=== PATIENT | female | born 1940 | race Caucasian/White ===

== ENCOUNTER → 2019-05-13 | Outpatient (CLI) | payer MEDICARE ==
--- NOTE | 2019-05-13 15:24 | US ---
EXAMINATION TYPE: US carotid duplex BILAT DATE OF EXAM: 05/13/2019 COMPARISON: NONE CLINICAL HISTORY: I65.29 Occlusion Stenosis.Bruit EXAM MEASUREMENTS: RIGHT: Peak Systolic Velocity (PSV) cm/sec ----- Right CCA: 67.1 ----- Right ICA: 94.7 ----- Right ECA: 136.3 ICA/CCA ratio: 1.4 RIGHT: End Diastole cm/sec ----- Right CCA: 14.8 ----- Right ICA: 25.0 ----- Right ECA: 22.0 LEFT: Peak Systolic Velocity (PSV) cm/sec ----- Left CCA: 95.8 ----- Left ICA: 203.4 ----- Left ECA: 114.1 ICA/CCA ratio: 2.1 LEFT: End Diastole cm/sec ----- Left CCA: 23.1 ----- Left ICA: 41.7 ----- Left ECA: 0 VERTEBRALS (direction of flow): Right Vertebral: Antegrade Left Vertebral: Antegrade Rhythm: Normal Grayscale, color Doppler, spectral Doppler imaging performed of the carotid arteries. Waveform analys is does not show significant stenosis of the internal carotid artery on the right. Peak systolic [place] within the proximal internal carotid artery is elevated. Some atheromatous change present in the carotid bulbs. IMPRESSION: Hemodynamic significant stenosis of the proximal internal carotid left corresponding to approximately 50-69% diameter reduction by Doppler criteria, an indirect measurement of carotid steno sis, consider carotid CTA.
== END | disposition home or self-care (01) ==
LOC: RADUSWWP 14:42
PROVIDERS: ATTEND Family Medicine
DX: I65.22 Occlusion and stenosis of left carotid artery (principal)
CPT/HCPCS: 93880

== ENCOUNTER → 2019-07-13 | Outpatient (CLI) | payer MEDICARE ==
--- NOTE | 2019-07-13 14:08 | CT ---
EXAMINATION TYPE: CT angio neck DATE OF EXAM: 07/13/2019 COMPARISON: Ultrasound 05/13/2019 HISTORY: 78-year-old female Carotid stenosis TECHNIQUE: Contiguous axial scanning of the neck performed with IV Contrast, patient injected with 65 mL of Isovue 370. Coronal/sagittal MIP reconstructions performed. 3-D reconstructions generated on a dedicated workstation. CT DLP: 292 mGycm Automated exposure control for dose reduction was used. FINDINGS: Mild atherosclerotic arch calcifications. Conventional arch vessel branching anatomy. Visualized uppe r lungs appear clear. There appears to be occlusion of the left vertebral artery. Some faint reconstitution is present in t he upper neck and V4 segment. Right vertebral artery remains patent. The brachiocephalic artery and right common carotid artery are patent. Mild atelectatic changes at the right carotid bifurcation with mild, less than 30% stenosis at the pr oximal right ICA. Moderate atherosclerotic calcifications within the right carotid siphon. The left common carotid artery is patent. Focal atherosclerotic plaque and calcification involving the proximal left carotid bulb resulting in a focal severe 70% stenosis. The bifurcation is located 1.5 cm below the angle of the mandible. Mild apical scarring changes at the left carotid siphon. 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 IMPRESSION: 1. BORDERLINE SEVERE, 70% PROXIMAL LEFT ICA STENOSIS. 2. LEFT VERTEBRAL ARTERY OCCLUSION AT ITS ORIGIN. THERE IS VERY FAINT RECONSTITUTION IN THE UPPER NEC K AND V4 SEGMENT PROBABLY FROM RETROGRADE FLOW.
== END | disposition home or self-care (01) ==
LOC: RADCTMAIN 10:33
PROVIDERS: ATTEND Family Medicine
DX: I65.22 Occlusion and stenosis of left carotid artery (principal); I65.02 Occlusion and stenosis of left vertebral artery
CPT/HCPCS: 82565; 84520; 70498; 36415; Q9967